=== PATIENT | male | born 1955 | race Caucasian/White ===

== ENCOUNTER 2022-05-02 17:18 | Inpatient (IN) ==
[2022-05-02] MEDS ORDERED: Perflutren Lipid Microsphere 1.3 ML in 0.9 % Sodium Chloride 8.7 ML IVP PRN (23:47)
[2022-05-02] MEDS ORDERED: Nitroglycerin 0.4 MG TAB.SUBL SL PRN (23:51)
[2022-05-02] MEDS ORDERED: Morphine Sulfate 2 MG/ML SYRINGE IVP PRN (23:51)
[2022-05-02] MEDS ORDERED: Ondansetron 4 MG/2 ML VIAL IVP PRN (23:54)
[2022-05-02] MEDS ORDERED: Naloxone 0.4 MG/ML INJ IVP PRN (23:54)
[2022-05-02] MEDS ORDERED: Acetaminophen 325 MG TABLET PO PRN (23:54)
[2022-05-03] MEDS ORDERED: Famotidine 20 MG TABLET PO SCH (00:30)
[2022-05-03 00:40] LABS: Basophils % 0.1 %; Eosinophils # 0.1 K/mcL (0.0-0.6); Eosinophils % 1.1 %; Hematocrit 45.6 % (37.5-50.1); Hemoglobin 15.5 g/dL (12.9-16.9); Immature Granulocytes % 0.1 % (0-4); Lymphocytes # 2.3 K/mcL (0.6-4.6); Lymphocytes % 29.1 %; Mean Corpuscular Hemoglobin 30.6 pg (28.0-33.3); Mean Corpuscular Volume 90.1 fL (83.0-100.0); Mean Platelet Volume 10.3 fL (9.4-12.4); Monocytes # 0.6 K/mcL (0.0-1.3); Monocytes % 6.8 %; Platelet Count 184 K/mcL (140-400); Red Blood Count 5.06 M/mcL (4.19-5.50); Red Cell Distribution Width 12.5 % (11.5-14.5); Segmented Neutrophils % 62.8 %
[2022-05-03 00:58] LABS: Alanine Aminotransferase 13 Units/L (7-52); Albumin 4.2 g/dL (3.5-5.7); Albumin/Globulin Ratio 1.7 (1.1-2.2); Alkaline Phosphatase 65 Units/L (34-104); Aspartate Amino Transferase 22 Units/L (13-39); BUN/Creatinine Ratio 19 (6-26); Bilirubin,Total 0.8 mg/dL (0.3-1.0); Blood Urea Nitrogen 17 mg/dL (8-23); Calcium 9.4 mg/dL (8.6-10.3); Carbon Dioxide 23 mEq/L (23-29); Chloride 106 mEq/L (98-107); Chol/HDL Ratio 2.5 (0-4.9); Cholesterol 138 mg/dL (< 200); Globulin 2.5 g/dL (2.4-3.5); Glucose 110 mg/dL (70-105); HDL Cholesterol 55 mg/dL (40-59); LDL Cholesterol,Calculated 64 mg/dL (< 100); Osmolality,Calculated 286 (280-300); Potassium 3.7 mEq/L (3.5-5.1); Sodium 137 mEq/L (136-145); Total Protein 6.7 g/dL (6.4-8.9); Triglycerides 94 mg/dL (< 150); eGFR For African Americans > 60 (> 60); eGFR For Non-African Americans > 60 (> 60)
[2022-05-03] MEDS ORDERED: *HR* Heparin 5,000 UNIT/ML VIAL IVP PRN ×2 (01:01)
[2022-05-03 01:14] LABS: Thyroid Stimulating Hormone 1.302 mcIU/mL (0.340-5.600)
[2022-05-03] MEDS: Heparin 25,000UNIT/250ML 1/2NS 25,000 UNIT/250 ML IV.SOLN IVC SCH (01:24)
[2022-05-03 01:28] LABS: Folate > 22.3 ng/mL (3.0-16.0); Vitamin B12 248 pg/mL (250-1100)
[2022-05-03] MEDS ORDERED: *HR* OxyCODONE Immed Rel 5 MG TABLET PO ONE (01:42)
[2022-05-03 01:56] LABS: Estimated Average Glucose 123 mg/dl; Hemoglobin A1C 5.9 %
[2022-05-03 01:59] LABS: Heparin anti-factor XA UFH 0.37 IU/mL (0.30-0.70)
[2022-05-03 02:00] LABS: INR 1.1
[2022-05-03] MEDS: Cyanocobalamin (B-12) 1,000 MCG TABLET PO SCH (09:02)
[2022-05-03] MEDS: Aspirin Enteric Coated 81 MG Tablet PO SCH (09:02)
[2022-05-03] MEDS: Loratadine 10 MG TABLET PO SCH (09:02)
[2022-05-03] MEDS ORDERED: 0.9 % Sodium Chloride 1,000 ML ONE (16:23)
[2022-05-03] MEDS ORDERED: *HR* FentaNYL (PF) 100 MCG/2 ML VIAL ONE ×2 (16:23→17:02)
[2022-05-03] MEDS ORDERED: *HR* Midazolam HCl 2 MG/2 ML VIAL ONE (16:23)
[2022-05-03] MEDS ORDERED: Nitroglycerin 1,000 MCG/5 ML VIAL IV ONE (16:24)
[2022-05-03] MEDS ORDERED: Iopamidol - 370 200 ML INFUS..BTL ONE (16:24)
[2022-05-03] MEDS ORDERED: *HR* Heparin 10,000 UNIT/10 ML VIAL ONE ×2 (16:24→17:04)
[2022-05-03] MEDS ORDERED: Heparin 1,000 UNITS/500 mL 500 ML ONE (16:24)
[2022-05-03] MEDS ORDERED: *HR* Ticagrelor 90 MG TABLET ONE (17:10)
[2022-05-03] MEDS ORDERED: Tirofiban 12.5 MG/250ML 12.5 MG/250 ML BAG ONE (17:12)
[2022-05-03] MEDS ORDERED: Tirofiban 12.5 MG/250ML 12.5 MG/250 ML BAG IVC SCH (17:30)
[2022-05-03] MEDS: *HR* Ticagrelor 90 MG TABLET PO SCH (20:39)
[2022-05-04] MEDS: Heparin 25,000UNIT/250ML 1/2NS 25,000 UNIT/250 ML IV.SOLN IVC SCH (01:32)
[2022-05-04 03:15] LABS: Hematocrit 43.1 % (37.5-50.1); Hemoglobin 14.6 g/dL (12.9-16.9); Mean Corpuscular HGB Conc 33.9 g/dL (31.6-35.5); Mean Corpuscular Hemoglobin 30.7 pg (28.0-33.3); Mean Corpuscular Volume 90.5 fL (83.0-100.0); Mean Platelet Volume 10.3 fL (9.4-12.4); Platelet Count 177 K/mcL (140-400); Red Blood Count 4.76 M/mcL (4.19-5.50); Red Cell Distribution Width 12.6 % (11.5-14.5); White Blood Count 7.2 K/mcL (4.3-11.1)
[2022-05-04 03:32] LABS: BUN/Creatinine Ratio 16 (6-26); Blood Urea Nitrogen 16 mg/dL (8-23); Calcium 8.9 mg/dL (8.6-10.3); Carbon Dioxide 22 mEq/L (23-29); Chloride 106 mEq/L (98-107); Glucose 77 mg/dL (70-105); Osmolality,Calculated 284 (280-300); Sodium 137 mEq/L (136-145); eGFR For African Americans > 60 (> 60); eGFR For Non-African Americans > 60 (> 60)
[2022-05-04] MEDS: *HR* Ticagrelor 90 MG TABLET PO SCH (08:47)
[2022-05-04] MEDS: Aspirin Enteric Coated 81 MG Tablet PO SCH (08:47)
[2022-05-04] MEDS: Loratadine 10 MG TABLET PO SCH (08:48)
[2022-05-04] MEDS: Cyanocobalamin (B-12) 1,000 MCG TABLET PO SCH (08:48)
[2022-05-04 11:19] VITALS: TEMP 98.1
[2022-05-04 11:24] VITALS: BP 136/88; PULSE 66; O2SAT 97
== END 2022-05-04 13:20 | disposition home or self-care (01) | DRG 247 ==
LOC: 3BNU → SUATTDRO 22:17
PROVIDERS: ADMIT Family Medicine; ATTEND Internal Medicine